=== PATIENT | male | born 1975 | race Caucasian/White ===

== ENCOUNTER 2022-10-21 21:45 | Emergency (ER) | payer OTHER ==
[2022-10-22 06:29] VITALS: BP 0/0; PULSE 0
== END 2022-10-21 22:03 | disposition expired ==
LOC: LB.ED 21:45
DX: S01.81XA Laceration without foreign body of other part of head, initial encounter (principal); S30.1XXA Contusion of abdominal wall, initial encounter; I46.9 Cardiac arrest, cause unspecified; R09.2 Respiratory arrest; V86.95XA Unspecified occupant of 3- or 4- wheeled all-terrain vehicle (ATV) injured in nontraffic accident, initial encounter
CPT/HCPCS: 31500; 70450; 71250; 72125; 74176; 92950; 99285-25